=== PATIENT | female | born 1990 | race Caucasian/White ===

== ENCOUNTER 2016-10-19 14:33 | Emergency (ER) | payer OTHER ==
[2016-10-19] MEDS ORDERED: KETOROLAC 30 MG/ML VIAL ONE (16:05)
[2016-10-19] MEDS ORDERED: SODIUM CHLORIDE 0.9% 1,000 ML ONE (16:05)
[2016-10-19] MEDS ORDERED: ONDANSETRON 4 MG VIAL ONE (16:05)
== END 2016-10-19 18:04 | disposition home or self-care (01) ==
LOC: ER 14:33
DX: A04.7 Enterocolitis due to Clostridium difficile (principal); R11.2 Nausea with vomiting, unspecified; R19.7 Diarrhea, unspecified; F17.210 Nicotine dependence, cigarettes, uncomplicated
CPT/HCPCS: 36415; 74022; 80053; 81003; 83630; 83690; 84703; 85025; 87045; 87046; 87177; 87493; 96361; 96374; 96375; 96376

== ENCOUNTER 2016-10-25 16:50 | Emergency (ER) | payer OTHER ==
[2016-10-25] MEDS ORDERED: OPTIRAY 350 100 ML VIAL HMH IV ONE (16:51)
[2016-10-25] MEDS ORDERED: ONDANSETRON 4 MG VIAL ONE ×2 (17:29→19:32)
[2016-10-25] MEDS ORDERED: SODIUM CHLORIDE 0.9% 1,000 ML ONE ×2 (17:30→19:11)
== END 2016-10-25 20:28 | disposition home or self-care (01) ==
LOC: ER 16:50
DX: A04.7 Enterocolitis due to Clostridium difficile (principal); R10.84 Generalized abdominal pain; R11.2 Nausea with vomiting, unspecified
CPT/HCPCS: 36415; 74177; 80053; 81001; 83690; 84703; 85025; 87088; 96361; 96374